=== PATIENT | male | born 1960 ===

== ENCOUNTER 2018-12-04 05:30 | Day surgery (SDC) | payer OTHER ==
[~2018-12-04] VITALS: Ht 182.9 cm; Wt 130.6 kg
[~2018-12-04 05:30] MED LIST: ASPIRIN325 PO; CARVEDILOL3.125 MG PO; ELIQUIS5 MG PO; ENTRESTO 24 MG1 EACH PO; FLOMAX0.4 MG PO; LASIX 40 MG TAB40 M2 PO; TAMBOCOR 100 M100 M1 PO; TRAMADOL 50 MG50 MG PO
[2018-12-04 06:40] LABS: HEMATOCRIT 44.1 % (42.0-52.0); MCH 30.9 pg (26.0-34.0); MCHC 34.1 g/dL (28.0-37.0); MCV 90.7 fL (80.0-100.0); RBC 4.86 mil/uL (4.50-6.00); RDW 13.9 % (10.5-14.5); WBC 4.9 thou/uL (4.0-11.0)
[2018-12-04 06:43] VITALS: BP 110/68
[2018-12-04 06:52] LABS: CALCIUM 9.3 mg/dL (8.5-10.1); CREATININE 1.5 mg/dL (0.7-1.3); POTASSIUM 3.9 mmol/L (3.5-5.1)
== END 2018-12-04 13:31 | disposition home or self-care (01) ==
LOC: TBA 05:30 → OR 05:30 → TBA 05:35 → OR 10:05
PROVIDERS: Podiatrist Foot & Ankle Surgery
DX: M19.072 Primary osteoarthritis, left ankle and foot (principal); M24.572 Contracture, left ankle; M21.42 Flat foot [pes planus] (acquired), left foot; M79.672 Pain in left foot; I11.0 Hypertensive heart disease with heart failure; I50.9 Heart failure, unspecified; I48.91 Unspecified atrial fibrillation; G47.33 Obstructive sleep apnea (adult) (pediatric); N40.0 Benign prostatic hyperplasia without lower urinary tract symptoms; E66.09 Other obesity due to excess calories; Z98.890 Other specified postprocedural states; Z95.810 Presence of automatic (implantable) cardiac defibrillator; Z79.899 Other long term (current) drug therapy; Z79.01 Long term (current) use of anticoagulants; Z68.37 Body mass index [BMI] 37.0-37.9, adult
CPT/HCPCS: 50010; 50101; 50386; 50951; 51741; 53341; 56524; 56525; 56527; 57091; 57180; 57247; 57248; 62110; 62900; 64039; 70005